=== PATIENT | male | born 1970 | race Caucasian/White ===

== ENCOUNTER 2017-07-21 14:05 | Outpatient (RCR) | payer MEDICARE, MEDICAID | END 2017-07-21 15:00 | disposition home or self-care (01) | LOC: PT 14:05 | DX: M48.52XD Collapsed vertebra, not elsewhere classified, cervical region, subsequent encounter for fracture with routine healing (principal); M54.2 Cervicalgia ==

== ENCOUNTER 2018-03-28 13:00 | Outpatient (RCR) | payer MEDICARE, MEDICAID | END 2018-03-28 13:30 | disposition home or self-care (01) | LOC: PT 13:00 | DX: M48.52XD Collapsed vertebra, not elsewhere classified, cervical region, subsequent encounter for fracture with routine healing (principal) | CPT/HCPCS: G8979-GP; G8985-GP ==

== ENCOUNTER 2022-04-03 01:24 | Emergency (ER) | payer MEDICARE, MEDICAID ==
[~2022-04-03] VITALS: Ht 175.3 cm; Wt 183.7 kg
[2022-04-03] MEDS ORDERED: HUMALOG KWIKPEN SQ (01:42)
[2022-04-03] MEDS ORDERED: FARXIGA10 MG PO (01:43)
[2022-04-03 02:27] LABS: HEMATOCRIT 44.6 % (42.0-52.0); HEMOGLOBIN 15.5 g/dL (13.5-18.0); MEAN CELL VOLUME 96 fl (78-100); MEAN CORPUSCULAR HEMOGLOBIN 33 pg (27-31); MEAN CORPUSCULAR HGB CONC 35 g/dL (33-37); MEAN PLATELET VOLUME 12.1 fl (7.4-10.4); PLATELET COUNT 224 K/mm3 (130-400); RED BLOOD COUNT 4.67 M/mm3 (4.20-5.60); RED CELL DISTRIBUTION WIDTH 13.3 % (11.5-14.5)
[2022-04-03 02:31] LABS: ALBUMIN 4.4 g/dL (3.5-5.0)
[2022-04-03 02:32] LABS: CALCIUM 10.9 mg/dL (8.3-10.5)
[2022-04-03 02:33] LABS: TOTAL PROTEIN 8.3 g/dL (6.4-8.3)
[2022-04-03 02:35] LABS: TOTAL BILIRUBIN 1.1 mg/dL (0.2-1.2)
[2022-04-03 02:38] LABS: BAND 1 % (0-10); LYMPHOCYTE 16 % (20-51); MONOCYTE 12 % (3-10); NEUTROPHILS 63 % (42-75)
[2022-04-03 02:40] LABS: MAGNESIUM 1.99 mg/dL (1.60-2.60)
[2022-04-03 02:41] LABS: POTASSIUM 2.8 mmol/L (3.5-5.1)
[2022-04-03] MEDS ORDERED: LANTUS SOLOS100 U/ML SQ (04:03)
[2022-04-03] MEDS ORDERED: GLUCOPHAGE PO (04:03)
[2022-04-03] MEDS ORDERED: EUTHYROX175 MCG PO (04:03)
[2022-04-03] MEDS ORDERED: ZANAFLEX 4MG TAB4 MG PO (04:04)
[2022-04-03 04:29] VITALS: BP 162/79
[2022-04-03 04:44] LABS: URINE APPEARANCE HAZY; URINE COLOR AMBER
[2022-04-03 04:45] LABS: URINE BILIRUBIN NEGATIVE (NEGATIVE); URINE BLOOD 50 ery/uL (NEGATIVE); URINE KETONE 1+ (NEGATIVE); URINE LEUKOCYTE ESTERASE NEGATIVE (NEGATIVE); URINE MUCUS PRESENT (NOT PRESENT); URINE NITRATE NEGATIVE (NEGATIVE); URINE PROTEIN(semi-quant) 2+ (NEGATIVE); URINE UROBILINOGEN NORMAL (NORMAL); URINE WBC 0-1 /hpf (0-3)
== END 2022-04-03 04:29 | disposition home or self-care (01) ==
LOC: ED 01:24
PROVIDERS: Family Medicine
DX: E11.65 Type 2 diabetes mellitus with hyperglycemia (principal); E03.9 Hypothyroidism, unspecified; N17.9 Acute kidney failure, unspecified; E87.6 Hypokalemia; E66.01 Morbid (severe) obesity due to excess calories; Z79.4 Long term (current) use of insulin; Z28.310 Unvaccinated for COVID-19; Z68.43 Body mass index [BMI] 50.0-59.9, adult
CPT/HCPCS: J7030

== ENCOUNTER → 2023-01-04 | Outpatient (CLI) | payer MEDICARE, MEDICAID ==
[~2023-01-04] MED LIST: EUTHYROX175 MCG PO; FARXIGA10 MG PO; GLUCOPHAGE PO; HUMALOG KWIKPEN SQ; LANTUS SOLOS100 U/ML SQ; ZANAFLEX 4MG TAB4 MG PO
[2023-01-04 11:02] LABS: BASO # 0.07 K/mm3 (0.02-0.10); EOS # 0.22 K/mm3 (0.04-0.40); EOS % 2.5 % (0.0-4.0); HEMATOCRIT 48.4 % (42.0-52.0); HEMOGLOBIN 16.5 g/dL (13.5-18.0); LYMPH# 2.11 K/mm3 (1.50-4.00); MEAN CELL VOLUME 92 fl (78-100); MEAN CORPUSCULAR HEMOGLOBIN 31 pg (27-31); MEAN CORPUSCULAR HGB CONC 34 g/dL (33-37); MEAN PLATELET VOLUME 12.4 fl (7.4-10.4); NEU # 5.41 K/mm3 (1.40-6.50); PLATELET COUNT 137 K/mm3 (130-400); RED BLOOD COUNT 5.27 M/mm3 (4.20-5.60); RED CELL DISTRIBUTION WIDTH 12.9 % (11.5-14.5); WHITE BLOOD COUNT 8.9 K/mm3 (4.8-10.8)
[2023-01-04 11:05] LABS: ALBUMIN 3.8 g/dL (3.5-5.0)
[2023-01-04 11:06] LABS: POTASSIUM 4.5 mmol/L (3.5-5.1)
[2023-01-04 11:07] LABS: CALCIUM 9.6 mg/dL (8.3-10.5)
[2023-01-04 11:08] LABS: TOTAL PROTEIN 7.1 g/dL (6.4-8.3)
[2023-01-04 11:10] LABS: TOTAL BILIRUBIN 0.7 mg/dL (0.2-1.2)
[2023-01-04 11:16] LABS: D-DIMER 0.32 mg/L FEU (0.15-0.50)
[2023-01-04 12:25] LABS: ERYTHROCYTE SEDIMENTATION RATE 16 mm/hr (0-20)
== END ==
LOC: LAB 10:43
PROVIDERS: Nurse Practitioner Family
DX: M79.605 Pain in left leg (principal); R60.0 Localized edema

== ENCOUNTER 2024-06-30 14:01 | Outpatient (RCR) | payer MEDICARE, MEDICAID ==
[2024-06-06 15:10] VITALS: BP 189/85
[2024-06-09 15:12] VITALS: BP 178/80
--- NOTE | 2024-06-09 15:39 | NUR ---
SEE PROVIDER NOTE FROM Jeremías LITTLEJOHN APRN
[2024-06-13 15:19] VITALS: BP 190/97
--- NOTE | 2024-06-13 15:55 | NUR ---
PT HERE FOR OUTPATIENT WOUND CARE TO BLE. OPEN WOUND ON LEFT POSTERIOR CALF. SEE PROVIDER NOTE FROM Jeremías LITTLEJOHN APRN FOR WOUND MEASUREMENTS, DESCRIPTION AND TREATMENTS.
--- NOTE | 2024-06-16 16:28 | NUR ---
Dolly from [employer] here to measure legs for juxtafit leg wraps for lymphedema. see provider note from Jeremías Corbin APRN
[2024-06-16 16:42] VITALS: BP 200/77
[2024-06-20 14:22] VITALS: BP 166/81
--- NOTE | 2024-06-20 14:25 | NUR ---
SEE PROVIDER NOTE FROM Jeremías LITTLEJOHN APRN.
[2024-06-23 16:12] VITALS: BP 163/81
--- NOTE | 2024-06-23 16:39 | NUR ---
FINAL WOUND CULTURE REPORT CAME BACK SHOWING NO GROWTH. REMOVED LEFT LOWER LEG DRESSING. MINIMAL YELLOWISH DRAINAGE. STATES HE DID NOT APPLY ANY LIDOCAINE CREAM TODAY. HAS NOT USED IT THE LASTS COULE TIMES AND DOES NOT THINK HE NEEDS IT ANY MORE. SHARP DEBRIDEMENT DONE BY Jeremías LITTLEJOHN APRN. CLEANED BLE WITH HIBICLENS AND STERILE WATER. DRIED WELL. APPLIED ATRAC-TAIN CREAM TO BLE AND GAVE THE TUBE TO PATIENT TO USE AT HOME. APPLIED KYRA COLLAGEN TO WOUND BED AND COVERED WITH MEPILEX BORDER FOAM DRESSING. 2 LAYERS OF TUBIGRIP PUT BACK ON BLE. PT HAS BEEN KEEPING THEM ON CONSISTENTLY. SEE PROVIDER NOTE FROM Jeremías LITTLEJOHN APRN.
[2024-06-27 14:04] VITALS: BP 173/80
--- NOTE | 2024-06-27 14:34 | NUR ---
PT ARRIVED AMBULATORY FOR OP WOUND CARE TO [facility]. MINIMAL AMOUNT OF YELLOW DRAINAGE ON DRSG. THIN YELLOW EXUDATE NOTED IN WOUND BED. SHARP DEBRIDEMENT DONE BY Jeremías LITTLEJOHN APRN. CLEANED WOUND WITH VASHE SOAK. SKIN PREP AROUND EDGES AND COLLAGEN KYRA INSERTED INTO WOUND BED. COVERED WITH MEPILEX FOAM BORDERED DRESSING. TUBIGRIP SIZE F APPLIED TO BLE IN DOUBLE LAYERS. PT NEIDA WELL. WILL RETURN IN 3 DAYS.
[~2024-06-30] VITALS: Ht 175.3 cm; Wt 183.7 kg
[~2024-06-30 14:01] MED LIST changes: +COLLAGEN SKIN1 EACH PO; +FLUTICASONE P15.8 ML NAS; +POTASSIUM99 M5 PO; +TOUJEO SOL300 UNIT/1 SC
[2024-06-30 14:20] VITALS: BP 119/64
== END 2024-07-03 | disposition home or self-care (01) ==
LOC: AMSURD
DX: E11.622 Type 2 diabetes mellitus with other skin ulcer (principal)
CPT/HCPCS: A6021; A6452

== ENCOUNTER → 2024-08-18 | Outpatient (CLI) | payer MEDICARE, MEDICAID | LOC: LAB 16:41 | DX: E11.622 Type 2 diabetes mellitus with other skin ulcer (principal); E03.4 Atrophy of thyroid (acquired) ==

== ENCOUNTER → 2024-11-13 | Outpatient (CLI) | payer MEDICARE, MEDICAID ==
[2024-11-13 17:04] LABS: CALCIUM 9.3 mg/dL (8.3-10.5)
== END ==
LOC: LAB 16:40
PROVIDERS: Family Medicine
DX: E11.622 Type 2 diabetes mellitus with other skin ulcer (principal); E03.4 Atrophy of thyroid (acquired)